=== PATIENT | male | born 1930 | race Caucasian/White ===

== ENCOUNTER 2016-05-06 05:30 | Inpatient (IN) | payer MEDICARE, OTHER ==
[~2016-05-06] VITALS: Ht 167.6 cm; Wt 75.1 kg
[2016-05-06 05:37] VITALS: BP 120/72; PULSE 70; RESP 15; O2SAT 97
[2016-05-06 05:50] LABS: BASOPHILS % (AUTO) 0.8 % (0-3); EOSINOPHILS % (AUTO) 4.3 % (0-5); MONOCYTES % (AUTO) 10.4 % (4-12); Mean Corpuscular Hemoglobin 29.4 pg (27.0-35.0); Mean Corpuscular Volume 84.6 fL (81-100); NEUTROPHILS % (AUTO) 55.6 % (40-74); Platelet Count 227 bil/L (150-400)
--- NOTE | 2016-05-06 06:01 | ED.REPORT ---
HPI-Syncope Date of Service May 06, 2016 ED Provider: Alireza Geller DO An 85 year old male on Coumadin with a history of dementia, chronic low back pain, chronic diarrhea, pacemaker, GA, and triple bypass is brought to the ED due to a fall. Per pt's , the pt woke her at 04:20 claiming that he had a stroke. The pt does not remember this. The pt's reports that he was able to speak and move all extremities, and she did not notice any symptoms of a stroke. He then asked to use the restroom. The pt's was sitting directly outside of the restroom a moment later when she saw him fall to the left against a nearby wall. His "eyes were rolled back" and he was unresponsive for approximately two minutes. This was accompanied by diaphoresis and nausea, though he did not experience vomiting, worsening cough, hematochezia, or incontinence. After he became responsive again, he was unable to sit up. The pt denies pain before the fall, pain in the ED, or focal weakness, stating instead that he fell because he was "just out of it." When the pt's blood pressure was taken following this episode it was 160, which is higher than his baseline of 110. Per pt's his legs have been getting progressively weaker over the last year, but this has dramatically worsened in the last two weeks. Though he is normally able to walk, his has been pushing him around in a walker. He has also been sleeping an abnormal amount in recent weeks. They moved from their home to an Assisted Living facility one month ago, after which he became extremely depressed. He was seen by his PCP last week, who did not find anything concerning. Nursing Notes Stated Complaint: SYNCOPE Chief Complaint: General Complaint Nursing Notes Reviewed: Yes Allergies: Coded Allergies: Penicillins (Verified Allergy, Severe, 02/09/09) Uncoded Allergies: Penicillin (Allergy, Severe, 10/16/03) sesame seeds (Allergy, Severe, Anaphylaxis, 10/16/03) Scheduled Aspirin (Aspirin) 81 Mg Tablet 81 MG PO DAILY Carvedilol (Carvedilol) 12.5 Mg Tablet 12.5 MG PO BID Cholecalciferol (Vitamin D3) (Vitamin D) 5,000 Unit Capsule 5,000 UNIT PO WEEKLY Donepezil (Donepezil) 10 Mg Tablet 10 MG PO HS Donepezil (Donepezil) 23 Mg Tablet 23 MG PO HS Lisinopril (Lisinopril) 20 Mg Tablet 20 MG PO DAILY Mirtazapine (Mirtazapine) 7.5 Mg Tablet 7.5 MG PO HS Simvastatin (Simvastatin) 20 Mg Tablet 20 MG PO HS Spironolactone (Spironolactone) 25 Mg Tablet 12.5 MG PO BID Warfarin Sodium (Warfarin Sodium) 5 Mg Tablet 5 MG PO DAILY Scheduled PRN Warfarin Sodium (Warfarin Sodium) 2.5 Mg Tablet 2.5 MG PO DIRECTED PRN PRN For Tachycardia General Time Seen by Provider: 06:00 Chief Complaint Other (Syncopal episode) Hx Obtained From: Patient, Spouse, EMS Arrived By: Ambulance Onset Occurred: 31 - 45 minutes ago Symptom Duration: 1 - 15 minutes Recent Healthcare: No recent hospitalization, Recent doctor visit Similar Sx Previous: No Past Medical History Past Medical History GA chronic low back pain chronic diarrhea dementia Past Surgical History 1994 CABG triple bypass pacemaker Smoking History Unknown if Ever Smoker Social History Other Social History: Good social support, , Lives in [facility] Ambulatory Status Cane Review of Systems Constitutional: Denies: Fever Respiratory: Denies: Non-productive cough, Shortness of breath Cardiovascular: Denies: Chest pain GI: Reports: Diarrhea, Nausea, Denies: Abdominal pain, Hematochezia, Vomiting Musculoskeletal: Denies: Back pain Skin: Reports Diaphoresis, Denies Rash Neurologic: Reports: Syncope, Denies: Weakness Complete sys rev & neg: except as marked. Physical Exam Physical Exam Notes: NIH score: 0 Initial Vital Signs Vital Signs (First) Date Time Temp Pulse Resp B/P Pulse Ox O2 Delivery O2 Flow Rate FiO2 05/06/16 05:37 34.6 70 15 120/72 97 Room Air Initial VS: Reviewed General/Constitutional: Awake, Alert Respiratory / Chest: Atraumatic, Breath sounds NL, Breath sounds = bilat, No respiratory distress pacemaker left upper chest Cardiovascular: Heart rate NL (paced), Regular rhythm, Heart sounds NL Lower Extremity / Pelvis / MS: Atraumatic, Full range of motion Neurologic: Oriented X3, Speech NL, No motor deficits, No sensory deficits, CN II - XII intact Head / Eyes: Atraumatic, Normocephalic, PERRL, EOMI ENT: Airway patent Mouth: Positive: Mucous membranes dry skin abrasion on top of left ear Neck: Atraumatic, Supple, Full range of motion Abdomen: Atraumatic, Soft, Non-tender Back: Atraumatic, Full range of motion C-spine, T-spine, and L-spine normal Skin: Color NL, No rash, Warm, Dry Psychiatric: Affect NL, Mood NL Upper Extremity / MS: Atraumatic, Full range of motion Interpretation & Diagnostics Lab Results Interpretation Result Diagram: 05/06/16 0532 05/06/16 0532 Test 05/06/16 05:32 White Blood Count 9.5th/mm3 (3.8-10.1) Red Blood Count 4.93mil/mm3 (4.40-5.80) Hemoglobin 14.5g/dL (13.8-17.2) Hematocrit 41.7% (41.0-50.0) Mean Corpuscular Volume 84.6fL (81-100) Mean Corpuscular Hemoglobin 29.4pg (27.0-35.0) Mean Corpuscular Hemoglobin Concent 34.8% (32.0-37.0) Red Cell Distribution Width 14.3% (12.3-15.4) Platelet Count 227bil/L (150-400) Neutrophils (%) (Auto) 55.6% (40-74) Lymphocytes (%) (Auto) 28.7% (14-46) Monocytes (%) (Auto) 10.4% (4-12) Eosinophils (%) (Auto) 4.3% (0-5) Basophils (%) (Auto) 0.8% (0-3) Hold Purple Top Tube Received (Received) Prothrombin Time 31.2sec (8.1-12.5) Prothromb Time International Ratio 2.85ratio Hold Blue Top Tube Received (Received) Sodium Level 132mEq/L (134-144) Potassium Level 5.6mEq/L (3.5-5.2) Chloride Level 103mEq/L (97-108) Carbon Dioxide Level 16mmol/L (18-29) Blood Urea Nitrogen 57mg/dL (8-27) Creatinine 1.33mg/dL (0.76-1.27) Estimat Glomerular Filtration Rate 54mL/min (>59) Glucose Level 129mg/dL (60-99) Calcium Level 9.1mg/dL (8.5-10.1) Total Bilirubin 0.3mg/dL (0.0-1.2) Aspartate Amino Transf (AST/SGOT) 30U/L (0-50) Alanine Aminotransferase (ALT/SGPT) 35U/L (0-44) Alkaline Phosphatase 58U/L (25-160) Total Protein 7.6g/dL (6.4-8.4) Albumin 4.1g/dL (3.4-5.0) Hold Red Top Tube Received (Received) Hold [place] Top Tube Received (Received) ECG Interpretation ECG Interpretation: ventricular-paced rhythm with a rate of 70 Time: 05:37 Interpreted by: ED physician X-Ray Chest Interpretation Chest Xray Interpretation: pacemaker no acute findings Interpretation / Wet Read by: Wet read ED physician CT Head Interpretation Diffuse atrophy and suggestion if subtle periventricular white matter disease (Leukoaraiosis) without CT evidence of acute intracranial pathology at this time. Interpretation / Wet Read by: Interpret - Radiologist Re-Eval/Medical Decision Med Decision/Clinical Course Patient presents with a syncopal episode, auditory dilation endorses moderate to severe dehydration with low bicarbonate, elevated potassium, and prerenal azotemia. Head CT and chest x-ray are unremarkable urine is not infected, pacemaker interrogation unremarkable, EKG reveals 100% paced rhythm. No identifiable signs or symptoms of stroke. Patient will be admitted and hydrated. Source of Hx: Old records Re-Evaluation/Progress #1: Time of Eval: 06:38 Patient Status: Condition improved Re-Evaluation/Progress Note: Pt rechecked, who is resting comfortably. Pt and his family are informed of lab results, diagnosis, and the plan for admission. The pt understands and agrees with the plan. All questions were addressed at this time. Re-Evaluation/Progress #2: Time of Eval: 08:05 Patient Status: Condition improved Re-Evaluation/Progress Note: Pt rechecked, who is resting and accompanied by family. Radiology results, code status, and plan for admission are further discussed. Consultation #1: Call Returned at: 06:00 Sales Representative Adding Machines: Agrees with eval Note: Consulted with [email or web address] sales representative regarding pt's case. Per dairy supplies sales representative, pt has 100% paced rhythm with no obvious cause for syncope. Consultation #2: Referral / Consult Name: Brittany Tate DO Consulted With: Hospitalist Call Returned at: 07:49 Sales Representative Adding Machines: Agrees with eval, Agrees with plan, Accepts admit Note: Spoke with Dr. Tate, hospitalist, regarding pt's case. Dr. Tate agrees with the evaluation and agrees to admit the pt. Counseled Regarding: Diagnosis, Lab results, Need for admission Discharge & Departure Impression: Primary Impression: Syncope Syncope type: unspecified Qualified Code: R55 - Syncope and collapse Additional Impressions: Dehydration Hyperkalemia Disposition: ADMITTED TO HOSPITAL Discharge Condition All VS Reviewed: Yes Condition: Stable Referrals: Emanuel Fregoso DO (PCP) Yunior Attestation Portions of this note were transcribed by Wilberto Gross I, Dr. Geller personally performed the history, physical exam and medical decision-making; I reviewed and confirmed the accuracy of the information in the transcribed note. Signed by: Yunior Jose, 05/06/16 and 08:02. copies to: Emanuel Fregoso Timothy S DO May 06, 2016 06:01 WILBERTO GROSS May 06, 2016 06:47
[2016-05-06 06:04] LABS: INR 2.85 ratio
[2016-05-06] MEDS ORDERED: 0.9% Sodium Chloride 500 ML IV ONE (06:35)
[2016-05-06 07:36] VITALS: BP 109/65; PULSE 71; RESP 16; O2SAT 97
[2016-05-06] MEDS ORDERED: Ondansetron 2 mg/mL 2 mL Inj IVPUSH PRN (08:00)
[2016-05-06] MEDS ORDERED: Alum-Mag Hydrox-Simeth 30 mL Suspension PO PRN (08:00)
[2016-05-06] MEDS ORDERED: Polyethylene Glycol (PEG) 17 Gm Powder PO PRN (08:00)
[2016-05-06] MEDS ORDERED: Calcium GLUCOnate 10% (Gm) 1 Gm/10 mL Inj IVPUSH ONE (08:10)
[2016-05-06] MEDS ORDERED: 0.9% Sodium Chloride 1,000 ML IV SCH ×2 (08:10→19:50)
[2016-05-06] MEDS ORDERED: CARV12.52 PO (08:15)
[2016-05-06] MEDS ORDERED: SIMV20TA4 PO (08:15)
[2016-05-06] MEDS ORDERED: DONE10TA42 PO (08:15)
[2016-05-06] MEDS ORDERED: LISI-567 PO (08:15)
[2016-05-06] MEDS ORDERED: CHOL500051 PO (08:15)
[2016-05-06] MEDS ORDERED: ASPI-973 PO (08:15)
[2016-05-06] MEDS ORDERED: DONE23TA7 PO (08:15)
[2016-05-06] MEDS ORDERED: SPIR25TA3 PO (08:15)
[2016-05-06] MEDS ORDERED: WARF5TAB7 PO (08:15)
[2016-05-06] MEDS ORDERED: WARF2.5T82 PO (08:15)
[2016-05-06] MEDS ORDERED: MIRT7.5T8 PO (08:15)
[2016-05-06 08:49] LABS: APPEARANCE,URINE CLEAR (CLEAR,HAZY); COLOR,URINE YELLOW (YELLOW); OCCULT BLOOD,URINE NEGATIVE (NEGATIVE); PH,URINE 5.5 (5.0-8.0); UROBILINOGEN,URINE NORMAL (NORMAL)
[2016-05-06 09:59] VITALS: BP 122/74; PULSE 70; RESP 20; O2SAT 96
--- NOTE | 2016-05-06 11:52 | DRSVH ---
PROCEDURE: X-RAY CHEST ONE VIEW, PORTABLE ([id number]) INDICATIONS: weakness TECHNIQUE: One view of the chest was acquired. COMPARISON: None. FINDINGS: Surgical changes and devices: Pacemaker and sternal wires are present. Lungs and pleura: No pleural effusions or pneumothorax. Lungs are clear. Mediastinum: Mediastinal contours appear normal. Heart size is normal. Bones and chest wall: No suspicious bony lesions. Overlying soft tissues appear unremarkable. IMPRESSION: No acute pulmonary process. Dictated by: Farnaz Sheridan M.D. on 05/06/2016 at 8:52 Approved by: Farnaz Sheridan M.D. on 05/06/2016 at 8:52
--- NOTE | 2016-05-06 12:08 | DRSVH ---
PROCEDURE: CT BRAIN WITHOUT CONTRAST ([id number]) INDICATIONS: syncope, on coumadin TECHNIQUE: Noncontrast 4.5 mm thick angled axial sections acquired from the foramen magnum to the vertex, with c oronal reformats. COMPARISON: None. FINDINGS: Image quality: Excellent. CSF spaces: Basal cisterns are patent. No extra-axial fluid collections. The ventricles are symmet kaylyn in size and shape. Brain: No intracranial bleeds or masses. There is cerebral volume loss for age, with resultant vent ricular and sulcal prominence. There are periventricular and deep white matter chronic small vessel ischemic changes. There is intracranial internal carotid artery atherosclerosis. Skull and face: Calvarium and visualized facial bones appear intact, without suspicious lesions. Sinuses: Visualized sinuses demonstrate mild ethmoid mucosal thickening. IMPRESSION: 1. No acute intracranial process. 2. Moderate atrophy and chronic microvascular ischemic changes. Dictated by: Farnaz Sheridan M.D. on 05/06/2016 at 8:32 Approved by: Farnaz Sheridan M.D. on 05/06/2016 at 8:32
[2016-05-06] MEDS ORDERED: Calcium GLUCO 10% (Gm) 1 Gm/10 mL 50 mL Inj IV ONE (12:40)
[2016-05-06] MEDS ORDERED: Insulin Human REGular-Omnicell 100 Unit/mL IV ONE (13:35)
[2016-05-06 13:46] VITALS: BP 133/77; PULSE 74; RESP 18; O2SAT 97
--- NOTE | 2016-05-06 15:48 | NUR ---
Admit Pt admitted from ED at 0910 after fall at home this AM. Pt states he is dizzy and uses cane at home and per "wall walks". Pt transferred to bed with Jay Em alarm in place. IV s/l on left AC. No c/o pain, DEAN. Alert to self only with baseline dementia. Forgetful and needs frequent reorienting to call light and not to get OOB. Addendum: 05/06/16 at 1825 by JOSE A GUERRA RN Pt had multiple episodes of loose bowels. MD aware and per has history of IBS. Pt lives in assisted living, so going to r/o norovirus. Pt placed on enteric precautions.
--- NOTE | 2016-05-06 17:49 | PCM.HPMED ---
Subjective Date of Service May 06, 2016 Primary Provider: Admitting Physician: Brittany Tate DO Primary Care Physician: Emanuel Fregoso DO Attending Physician: Brittany Tate DO Chief Complaint: Syncope Allergies Coded Allergies: Penicillins (Verified Allergy, Severe, 02/09/09) Uncoded Allergies: Penicillin (Allergy, Severe, 10/16/03) sesame seeds (Allergy, Severe, Anaphylaxis, 10/16/03) PMH Social History Hx Alcohol Use: No Hx Substance Use: No Smoking Status: Unknown if Ever Smoker Exam Vital Signs Vital Sign - Last Date Time Temp Pulse Resp B/P Pulse Ox O2 Delivery O2 Flow Rate FiO2 05/06/16 13:46 36.4 74 18 133/77 97 Room Air Intake and Output 05/05/16 05/05/16 05/06/16 Cumulative From/Thru 15:00 23:00 07:00 05/06/16 05:37 - 05/06/16 06:39 Intake Total 500 ml 500 ml Balance 500 ml 500 ml Intake IV Total 500 ml 500 ml Lab and Diagnostics Result Diagram: 05/06/16 0532 05/06/16 0532 Assessment & Plan HPI: Patient is an 85-year-old male who presented to the emergency room status post fall secondary to a syncopal episode. The patient presented with his who stated that the patient woke up this morning complaining of "I am having a stroke". The examined the patient and saw no signs of facial drooping noted the patient have any slurring of speech. At that time the patient decided to go to the bathroom and while on the toilet the heard the patient fall and hit his head on the bathroom wall. The stated that the patient lost consciousness for about 2 minutes and then had a postictal period of confusion shortly after regaining consciousness. The then decided the patient needed to come in for examination. The states that the patient has not been complaining of chest pain, shortness of breath, fever, chills, nausea or vomiting. Patient does have chronic loose stools most likely secondary to IBS. The states that she feels the patient has been complaining of increased weakness progressing for the last 1-2 months. The patient generally gets pushed around by his on her roller aid and needs significant assistance with daily activities. The patient is being admitted for syncopal episode and increasing weakness status post fall. The patient does have a pacemaker and while in the ED they were able to capture at the pacemaker and it was interrogated by [email or web address] who stated that there was no signs of any dysfunction of the pacemaker. PCP: Marylou Daniel Hoop Maker: Dr. Knight Allergies: Drug: Penicillin Food: Sesame seed PMHx: Dementia DE IBS GERD BPH SHx: Appendectomy in the Cardiac stent in 1993 Three-way bypass and 1994 Pacemaker FHx: Mother at age 83 and history of breast cancer Father at age 56 secondary to lung disease Family history of premature ischemic heart disease SocHx: Occupation: Tobacco history: Patient denies Alcohol use: Patient denies Drug use: Patient denies ROS: A 12point revew of systems was performed or attempted to be performed. Please see HPI for perninent positives. Physical Exam: GEN: Patient was awake, alert, responding appropriately to questions HEENT: PERRLA, EOMI, Neck soft supple, trachea midline, nomocephalic/atraumatic CV: +S1/S2, RRR, pacemaker noted and palpated Respiratory: CTAB, no wheezes, rales, rhonchi GI: +bowel sounds x4, soft, compressible, non TTP EXT: no c/c/e Neuro: CN II-XII grossly intact Psych: mood and affect were appropriate Assessment and Plan 85-year-old male presents with complaint of syncopal episode Syncopal episode with a fall may be likely due to dehydration -- Hyponatremia Sodium 132 -- Continue IV fluids gentle hydration -- Rule out infectious etiology -- Patient was hypotensive on admission with a blood pressure of 109/65 -- Urine culture -- We will continue to monitor -- CT negative for intracranial bleeding Weakness -- PT consulted -- May be secondary to dehydration we will rehydrate patient Chronic diarrhea most likely secondary to IBS -- Stool cultures to rule out infectious etiology for possible increased diarrhea Acute kidney injury possibly secondary to dehydration -- Creatinine 1.33 -- Continue IV fluids -- We will continue to monitor Hyperkalemia -- Potassium level 5.6 -- Continue IV fluids -- We will continue to monitor Hypertension -- Currently stable -- Continue home medications DVT prophylaxis: Patient currently on warfarin pharmacy to manage INR therapeutic Code Status: DO NOT INTUBATE as per the , the patient would still want CPR and other resuscitative measures to be taken. VTE Prophylaxis: Theraputic Anticoag with Warfarin VTE Mechanical Devices: Intermittant Pneumatic CD Resuscitation Status: Limited Interventions (DO NOT INTUBATE) Limited Interventions: Compressions, Cardioversion/Defibrillation, BiPAP, Medications and IV Fluid Time spent Greater than 35 minutes Brittany Tate DO May 06, 2016 17:49
--- NOTE | 2016-05-06 19:35 | NUR ---
Calcium Gluconate Medication ordered this AM by ER prior to admission, but per LINE INSTALLER REPAIRER (Nikole Paredes) medication not given. Discussed with MD here and new orders put in for calcium gluconate, but then MD canceled. ER medication order still in [facility], but medication not given.
[2016-05-06 20:55] VITALS: BP 145/83; PULSE 70; RESP 20; O2SAT 97
--- NOTE | 2016-05-06 23:33 | PCM.CONPHA ---
Subjective Syncope Objective Vital Signs Date Time Temp Pulse Resp B/P Pulse Ox O2 Delivery O2 Flow Rate FiO2 05/06/16 20:55 36.7 70 20 145/83 97 Room Air 05/06/16 13:46 36.4 74 18 133/77 97 Room Air 05/06/16 09:59 36.8 70 20 122/74 96 Room Air 05/06/16 08:34 34.6 71 16 109/65 97 Room Air 05/06/16 07:36 71 16 109/65 97 Room Air 05/06/16 05:37 34.6 70 15 120/72 97 Room Air Weight (Kilograms): 75.100 Height (Feet): 5 Height (Inches): 6.00 Test 05/06/16 05:32 05/06/16 08:29 White Blood Count 9.5th/mm3 (3.8-10.1) Red Blood Count 4.93mil/mm3 (4.40-5.80) Hemoglobin 14.5g/dL (13.8-17.2) Hematocrit 41.7% (41.0-50.0) Mean Corpuscular Volume 84.6fL (81-100) Mean Corpuscular Hemoglobin 29.4pg (27.0-35.0) Mean Corpuscular Hemoglobin Concent 34.8% (32.0-37.0) Red Cell Distribution Width 14.3% (12.3-15.4) Platelet Count 227bil/L (150-400) Neutrophils (%) (Auto) 55.6% (40-74) Lymphocytes (%) (Auto) 28.7% (14-46) Monocytes (%) (Auto) 10.4% (4-12) Eosinophils (%) (Auto) 4.3% (0-5) Basophils (%) (Auto) 0.8% (0-3) Hold Purple Top Tube Received (Received) Prothrombin Time 31.2sec (8.1-12.5) Prothromb Time International Ratio 2.85ratio Hold Blue Top Tube Received (Received) Sodium Level 132mEq/L (134-144) Potassium Level 5.6mEq/L (3.5-5.2) Chloride Level 103mEq/L (97-108) Carbon Dioxide Level 16mmol/L (18-29) Blood Urea Nitrogen 57mg/dL (8-27) Creatinine 1.33mg/dL (0.76-1.27) Estimat Glomerular Filtration Rate 54mL/min (>59) Glucose Level 129mg/dL (60-99) Calcium Level 9.1mg/dL (8.5-10.1) Total Bilirubin 0.3mg/dL (0.0-1.2) Aspartate Amino Transf (AST/SGOT) 30U/L (0-50) Alanine Aminotransferase (ALT/SGPT) 35U/L (0-44) Alkaline Phosphatase 58U/L (25-160) Total Protein 7.6g/dL (6.4-8.4) Albumin 4.1g/dL (3.4-5.0) Hold Red Top Tube Received (Received) Hold [place] Top Tube Received (Received) Urine Color Yellow (YELLOW) Urine Appearance Clear (CLEAR,HAZY) Urine pH 5.5 (5.0-8.0) Urine Specific [place] 1.021 (1.003-1.035) Urine Protein Negativemg/dL (NEG,TRACE) Urine Glucose (UA) Negativemg/dL (NEGATIVE) Urine Ketones Negativemg/dL (NEGATIVE) Urine Occult Blood Negative (NEGATIVE) Urine Nitrite Negative (NEGATIVE) Urine Bilirubin Negative (NEGATIVE) Urine Urobilinogen Normalmg/dL (NORMAL) Urine Leukocyte Esterase Negative (NEGATIVE) Urine RBC 0-2/hpf (0-2) Urine WBC 0-5/hpf (0-5) Urine Epithelial Cells Few/hpf (NONE-MOD) Urine Crystals None seen (NONE SEEN) Urine Bacteria None/hpf (NONE-FEW) Urine Hyaline Casts Occasional/lpf (NONE) Urine Granular Casts None seen (NONE SEEN) Urine Waxy Casts None seen (NONE SEEN) Urine Red Blood Cell Casts None seen (NONE SEEN) Urine White Blood Cell Casts None seen (NONE SEEN) Urine Mucus None seen (None Seen) Urine Trichomonas None seen (NONE SEEN) Urine Yeast None (NONE SEEN) Urinalysis Comment None Urine Culture Reflexed Not indicated Assessment/Plan Assessment/Plan PATIENT IS AN 85 YEAR OLD MALE ON WARFARIN FOR DVT PROPHYLAXIS HIS HOME DOSE IS 2.5 MG AND 5 MG DAILY "PRN" FOR INR HIS INR 05/06 WAS 2.85; INR ORDERED FOR 05/07 AND WARFARIN WILL BE DOSED ( OR HELD ) ACCORDINGLY. HE IS WITHIN HIS GOAL RANGE OF 2-3 INR PHARMACY WILL CONTINUE TO FOLLOW DAILY. THANK YOU FOR CONSULTING PHARMACY IN THE CARE OF THIS PATIENT. Jacque Marin RPH May 06, 2016 23:33
[2016-05-07 01:10] VITALS: BP 132/72; PULSE 72; RESP 20; O2SAT 97
[2016-05-07 05:55] VITALS: BP 123/73; PULSE 70; RESP 20; O2SAT 96
[2016-05-07 06:48] LABS: BASOPHILS % (AUTO) 0.5 % (0-3); EOSINOPHILS % (AUTO) 3.6 % (0-5); Mean Corpuscular Hemoglobin 29.1 pg (27.0-35.0); Mean Corpuscular Volume 83.5 fL (81-100); NEUTROPHILS % (AUTO) 57.7 % (40-74); Platelet Count 218 bil/L (150-400)
[2016-05-07 07:09] LABS: INR 2.99 ratio
--- NOTE | 2016-05-07 07:39 | NUR ---
Generalized weakness Also impulsive, bed alarm on. Oriented to self and place only. Denies pain.
--- NOTE | 2016-05-07 09:59 | NUR ---
Evaluation completed. Please go to "Notes" then click on "Assessments and Notes" (bottom left corner of screen). Then select appropriate discipline tab on top of screen.
--- NOTE | 2016-05-07 10:34 | NUR ---
Hyperkalemia P: K+ elevated at admission. Improved but still high today at 5.0. I: Spironolactone withheld this morning per discussion with Dr. Tate. E: Will reevaluate Potassium levels in the morning and monitor for signs of worsening hyperkalemia.
[2016-05-07 10:46] VITALS: BP 129/76; PULSE 70; RESP 18; O2SAT 97
--- NOTE | 2016-05-07 13:38 | PCM.PNMED ---
Subjective Date of Service May 07, 2016 Subjective Patient was examined at bedside today. Patient denies any chest pain, shortness of breath, nausea, vomiting. Patient states that he is doing well and has no complaints. Exam Vital Signs Vital Sign - Last Date Time Temp Pulse Resp B/P Pulse Ox O2 Delivery O2 Flow Rate FiO2 05/07/16 10:46 36.3 70 18 129/76 97 Room Air Intake and Output 05/06/16 05/06/16 05/07/16 Cumulative From/Thru 15:00 23:00 07:00 05/06/16 05:37 - 05/07/16 01:00 Intake Total 707 ml 1207 ml Output Total 5 ml 5 ml Balance 702 ml 1202 ml Intake Oral 440 ml 440 ml IV Total 267 ml 767 ml Urine/Stool Mix 5 ml 5 ml Bladder Scan Volume Amount 86mL Exam Physical Exam: GEN: Patient was awake, alert, responding appropriately to questions HEENT: PERRLA, EOMI, Neck soft supple, trachea midline, nomocephalic/atraumatic CV: +S1/S2, RRR, no murmurs auscultated Respiratory: CTAB, no wheezes, rales, rhonchi GI: +bowel sounds x4, soft, compressible, non TTP EXT: no c/c/e Neuro: CN II-XII grossly intact Psych: mood and affect were appropriate IVs and Medications Medications Reviewed: Medications were reviewed in detail Medications Current Medications Al Hydrox/Mg Hydrox/Simethicone 30 ml Q6H PRN PO; Start 05/06/16 at 08:00 Ondansetron HCl 4 to 8 mg Q4H PRN IVPUSH; Start 05/06/16 at 08:00 Senna 17.2 mg BID PRN PO; Start 05/06/16 at 08:00 Polyethylene Glycol 17 gm 17 gm DAILY PRN PO; Start 05/06/16 at 08:00 Sodium Chloride 1,000 ml @ 100 mls/hr Q10H IV Last administered on 05/06/16 12 :18; Admin Dose 100 MLS/HR; Start 05/06/16 at 08:10; Stop 05/06/16 at 19:47; Status DC Aspirin 81 mg DAILY PO Last administered on 05/07/16 10:06; Admin Dose 81 MG; Start 05/07/16 at 08:30 Carvedilol 12.5 mg BID PO Last administered on 05/07/16 10:07; Admin Dose 12.5 MG; Start 05/06/16 at 20:30 Lisinopril 20 mg DAILY PO Last administered on 05/07/16 10:06; Admin Dose 20 MG ; Start 05/07/16 at 08:30 Spironolactone 12.5 mg BID PO Last administered on 05/06/16 20:12; Admin Dose 12.5 MG; Start 05/06/16 at 20:30 Donepezil HCl 10 mg HS PO; Start 05/06/16 at 21:51; Stop 05/06/16 at 23:22; Status DC Patient Own Medication 1 ea HS PO; Start 05/07/16 at 21:00 Mirtazapine 7.5 mg HS PO Last administered on 05/06/16 23:17; Admin Dose 7.5 MG ; Start 05/06/16 at 21:52 Atorvastatin Calcium 10 mg HS PO Last administered on 05/06/16 23:17; Admin Dose 10 MG; Start 05/06/16 at 21:52 Pharmacy Consult 1 ea 1 ea DAILY@17 XX; Start 05/07/16 at 17:00 Sodium Chloride 1,000 ml @ 50 mls/hr Q20H IV; Start 05/06/16 at 19:50; Stop at 07:28; Status DC Lab and Diagnostics Result Diagram: 05/07/16 0630 05/07/16 0630 Assessment & Plan 85-year-old male admitted status post fall from syncopal episode. Syncopal episode with a fall may be likely due to dehydration -- Hyponatremia Sodium 132 (resolved sodium 139) -- Discontinue Continue IV fluids -- Rule out infectious etiology white blood cell count within normal limits currently no other signs of bacterial or viral infection -- Urine culture -- CT negative for intracranial bleeding -- We will continue to monitor Hypotension (resolved) --Admission with a blood pressure of 109/65 currently blood pressure is 129/76. -- We will continue to monitor Weakness -- PT consulted and stated that the patient does have an unbalanced gait secondary to his dementia however he is ambulating adequately. Patient's weakness may have been secondary to dehydration. Chronic diarrhea most likely secondary to IBS -- Stool cultures negative diarrhea is secondary to IBS Acute kidney injury possibly secondary to dehydration (resolved) -- Creatinine 1.33 yesterday and today creatinine is 1.04 -- Discontinue Continue IV fluids -- We will continue to monitor Hyperkalemia (resolved) -- Potassium level 5.6 yesterday, today 5.0 -- Discontinue Continue IV fluids -- Continue to hold spironolactone -- We will continue to monitor DVT prophylaxis: Patient currently on warfarin pharmacy to manage INR therapeutic Code Status: DO NOT INTUBATE as per the , the patient would still want CPR and other resuscitative measures to be taken. VTE Prophylaxis: Theraputic Anticoag with Warfarin VTE Mechanical Devices: Intermittant Pneumatic CD Resuscitation Status: Limited Interventions (DO NOT INTUBATE) Limited Interventions: Compressions, Cardioversion/Defibrillation, BiPAP, Medications and IV Fluid Brittany Tate DO May 07, 2016 13:38
[2016-05-07 15:37] VITALS: BP 106/65; PULSE 70; RESP 16; O2SAT 94
--- NOTE | 2016-05-07 15:43 | NUR ---
Social Work: Initial Evaluation Data & Assessment: EMR reviewed. See Initial Assessment. rigging up worker met with patient and patient's family at bedside to complete initial assessment, discuss discharge plan, and SW role explained. Patient is a 85 y/o male that admitted due to syncope, dehydration, and hyperkalemia. Patient's NOK is his Sarah Beaulieu- [phone]. Patient's daughter Pamella [phone] can also be contacted. Patient does not have a DPOA, but SW provided patient with the information. Patient's PCP is Dr. Emanuel Fregoso. Patient insurance is Medicare and Secondary is [employer]. Patient has VA benefits and no LTC insurance. Patient's re-admit score is high at 4. Prior to admissions patient lived at [facility] with his . . Patient has a walker. Patient has no SNF history, but he has had HH with [facility]. Patient was evaluated by PT and they are recommending HH. Patient's wants [facility] because he has had them in the past. Patient is likely to discharge back to [facility] with [facility]. SW will continue to follow. Plan: Patient is likely to discharge back to [facility] with [facility] when medically stable. SW will continue to follow. Santos Rodriguez LMSW, VANESA Addendum: 05/07/16 at 1552 by SANTOS RODRIGUEZ SS Amended: Links added.
--- NOTE | 2016-05-07 16:02 | NUR ---
Social Work: IFEANYI IFEANYI Signed
--- NOTE | 2016-05-07 16:41 | PCM.PHAPRO ---
Progress Date of Service: May 07, 2016 Warfarin Dosing Indication: Dvt px Home Dose: 7.5mg M,W,F 5mg AOD Anticoagulation Trends: Date May 07-Apr INR 2.85 2.99 Warf Dose 5MG (before arriving) 2.5MG GOAL INR: 2-3 Summary: Patient's INR is on the high end and trending up, will give 50% of what the home dose would be today. Pharmacy will continue to follow daily. Thank you for consulting pharmacy in the care of this patient. Twin Ochoa May 07, 2016 16:41
[2016-05-07 19:57] VITALS: BP 111/70; PULSE 72; RESP 18; O2SAT 96
[2016-05-07] MEDS ORDERED: DONEPEZIL 23 MG PO SCH (21:00)
[2016-05-08 04:34] VITALS: BP 120/72; PULSE 74; RESP 16; O2SAT 96
[2016-05-08 06:19] LABS: Mean Corpuscular Hemoglobin 28.7 pg (27.0-35.0); Mean Corpuscular Volume 83.9 fL (81-100)
[2016-05-08 06:59] LABS: INR 2.17 ratio
--- NOTE | 2016-05-08 07:15 | NUR ---
patients called last evening. she would like to be notified of husbands pending discharge so she can arrange a ride for him. She lives at [facility] and doesn't drive. Patient stable overnight with no acute changes.
[2016-05-08 10:27] VITALS: BP 146/82; PULSE 71; RESP 18; O2SAT 97
--- NOTE | 2016-05-08 11:32 | PCM.DIMED ---
Discharge Instructions Date of Service May 08, 2016 Dates of Hospitalization May 06, 2016 at 08:15 Discharge Diagnosis Discharge Diagnosis Syncopal episode with a fall may be likely due to dehydration Hypotension (resolved) Chronic diarrhea most likely secondary to IBS Acute kidney injury possibly secondary to dehydration (resolved) Hyperkalemia (resolved) Weakness Medication Instructions Please follow up with her Coumadin clinic or her primary care physician if they manage her Coumadin for close monitoring. Please do not take the spironolactone as this may have been the cause of her high potassium levels. Please discuss further usage of this medication with her primary care physician. Diet Other (patient has no restrictions on his diet as long as he is using enters. Patient does not have his dentures and the patient use a soft mechanical diet) Activity Other (activity as tolerated. Patient should continue to use a walker as the patient does have an unsteady gait) Call your provider Fever or Chills, Shortness of breath, Bleeding, Chest pain Patient Instructions Follow-up Provider: Emanuel Fregoso DO Follow-up with PCP in: 1 week Brittany Tate DO May 08, 2016 11:32
--- NOTE | 2016-05-08 13:59 | PCM.DC.MED ---
Discharge Summary Date of Service May 08, 2016 Dates of Hospitalization Date of Hospital Admission May 06, 2016 at 08:15 Date of Discharge: May 08, 2016 Providers: Admitting Physician: Brittany Tate DO Primary Care Physician: Emanuel Fregoso DO Attending Physician: Birttany Tate DO Diagnosis at Time of Discharge Diagnosis at Time of Discharge Syncopal episode with a fall may be likely due to dehydration Hypotension (resolved) Chronic diarrhea most likely secondary to IBS Acute kidney injury possibly secondary to dehydration (resolved) Hyperkalemia (resolved) Weakness Brief History 85-year-old male admitted status post fall from syncopal episode. Hospital Course Patient is an 85-year-old gentleman who fell status post syncopal episode while on the toilet. The patient fell and hit his head and lost consciousness for about 2 minutes. The patient's had the patient brought to the emergency room. The patient did have a head CT scan which was negative for any intracranial processes. However upon admission the patient was found to be dehydrated and was hypotensive and had hyponatremia, hyperkalemia, and weakness. The patient was resuscitated with IV fluids and his spironolactone was held. The patient was most likely dehydrated and also suffered from hyperkalemia secondary to spironolactone use. The patient responded quickly and his labs have resolved. The patient also suffers from chronic intermittent diarrhea most likely secondary to IBS. Patient's stool cultures came back negative for any infectious processes. Physical therapy examined the patient and noted that he does have some shuffling gait instability secondary to his dementia. However the patient has been physically cleared to return to his assisted living facility with no further recommendations for home PT. The patient is currently doing well she has been walking on his own with the assistance of a walker, has been able to feed himself and is communicating appropriately. Patient is being discharged back to his assisted living facility in stable condition. Exam Vital Signs (Last) Date Time Temp Pulse Resp B/P Pulse Ox O2 Delivery O2 Flow Rate FiO2 05/08/16 10:27 36.4 71 18 146/82 97 Room Air Exam Physical Exam: GEN: Patient was awake, alert, responding appropriately to questions HEENT: PERRLA, EOMI, Neck soft supple, trachea midline, nomocephalic/atraumatic CV: +S1/S2, RRR, no murmurs auscultated, pacemaker noted on exam. Respiratory: CTAB, no wheezes, rales, rhonchi GI: +bowel sounds x4, soft, compressible, non TTP EXT: no c/c/e Neuro: CN II-XII grossly intact Psych: mood and affect were appropriate Test 05/06/16 05:32 05/06/16 08:29 05/07/16 06:30 05/08/16 05:40 Hold Purple Top Tube Received (Received) Hold Blue Top Tube Received (Received) Hold Red Top Tube Received (Received) Hold [place] Top Tube Received (Received) Urine Color Yellow (YELLOW) Urine Appearance Clear (CLEAR,HAZY) Urine pH 5.5 (5.0-8.0) Urine Specific [place] 1.021 (1.003-1.035) Urine Protein Negativemg/dL (NEG,TRACE) Urine Glucose (UA) Negativemg/dL (NEGATIVE) Urine Ketones Negativemg/dL (NEGATIVE) Urine Occult Blood Negative (NEGATIVE) Urine Nitrite Negative (NEGATIVE) Urine Bilirubin Negative (NEGATIVE) Urine Urobilinogen Normalmg/dL (NORMAL) Urine Leukocyte Esterase Negative (NEGATIVE) Urine RBC 0-2/hpf (0-2) Urine WBC 0-5/hpf (0-5) Urine Epithelial Cells Few/hpf (NONE-MOD) Urine Crystals None seen (NONE SEEN) Urine Bacteria None/hpf (NONE-FEW) Urine Hyaline Casts Occasional/lpf (NONE) Urine Granular Casts None seen (NONE SEEN) Urine Waxy Casts None seen (NONE SEEN) Urine Red Blood Cell Casts None seen (NONE SEEN) Urine White Blood Cell Casts None seen (NONE SEEN) Urine Mucus None seen (None Seen) Urine Trichomonas None seen (NONE SEEN) Urine Yeast None (NONE SEEN) Urinalysis Comment None Urine Culture Reflexed Not indicated Neutrophils (%) (Auto) 57.7% (40-74) Lymphocytes (%) (Auto) 26.1% (14-46) Monocytes (%) (Auto) 12.0% (4-12) Eosinophils (%) (Auto) 3.6% (0-5) Basophils (%) (Auto) 0.5% (0-3) White Blood Count 8.4th/mm3 (3.8-10.1) Red Blood Count 4.78mil/mm3 (4.40-5.80) Hemoglobin 13.7g/dL (13.8-17.2) Hematocrit 40.1% (41.0-50.0) Mean Corpuscular Volume 83.9fL (81-100) Mean Corpuscular Hemoglobin 28.7pg (27.0-35.0) Mean Corpuscular Hemoglobin Concent 34.2% (32.0-37.0) Red Cell Distribution Width 14.3% (12.3-15.4) Platelet Count 217bil/L (150-400) Prothrombin Time 23.6sec (8.1-12.5) Prothromb Time International Ratio 2.17ratio Sodium Level 136mEq/L (134-144) Potassium Level 5.2mEq/L (3.5-5.2) Chloride Level 103mEq/L (97-108) Carbon Dioxide Level 21mmol/L (18-29) Blood Urea Nitrogen 34mg/dL (8-27) Creatinine 1.06mg/dL (0.76-1.27) Estimat Glomerular Filtration Rate 71mL/min (>59) Glucose Level 97mg/dL (60-99) Calcium Level 9.2mg/dL (8.5-10.1) Total Bilirubin 0.4mg/dL (0.0-1.2) Aspartate Amino Transf (AST/SGOT) 25U/L (0-50) Alanine Aminotransferase (ALT/SGPT) 30U/L (0-44) Alkaline Phosphatase 52U/L (25-160) Total Protein 6.5g/dL (6.4-8.4) Albumin 3.8g/dL (3.4-5.0) Discharge Medications Discharge Medications Aspirin (Aspirin) 81 Mg Tablet 81 MG PO DAILY (Reported) Carvedilol (Carvedilol) 12.5 Mg Tablet 12.5 MG PO BID (Reported) Cholecalciferol (Vitamin D3) (Vitamin D) 5,000 Unit Capsule 5,000 UNIT PO WEEKLY (Reported) Donepezil (Donepezil) 10 Mg Tablet 10 MG PO HS (Reported) Donepezil (Donepezil) 23 Mg Tablet 23 MG PO HS (Reported) Lisinopril (Lisinopril) 20 Mg Tablet 20 MG PO DAILY (Reported) Mirtazapine (Mirtazapine) 7.5 Mg Tablet 7.5 MG PO HS (Reported) Simvastatin (Simvastatin) 20 Mg Tablet 20 MG PO HS (Reported) Warfarin Sodium (Warfarin Sodium) 5 Mg Tablet 5 MG PO DAILY (Reported) As needed Warfarin Sodium (Warfarin Sodium) 2.5 Mg Tablet 2.5 MG PO DIRECTED PRN PRN For Tachycardia (Reported) Additional med instructions Please follow up with her Coumadin clinic or her primary care physician if they manage her Coumadin for close monitoring. Please do not take the spironolactone as this may have been the cause of her high potassium levels. Please discuss further usage of this medication with her primary care physician. Followup Plan Discharge Diet: Other (patient has no restrictions on his diet as long as he is using enters. Patient does not have his dentures and the patient use a soft mechanical diet) Discharge Activity: Other (activity as tolerated. Patient should continue to use a walker as the patient does have an unsteady gait) Follow-up Provider: Emanuel Fregoso DO Follow-up with PCP in: 1 week copies to: Emanuel Fregoso Precious L DO May 08, 2016 11:35
--- NOTE | 2016-05-08 14:59 | NUR ---
Discharge Pt DC to [facility] living [facility] at 1440 with family via private vehicle. Prior to DC, Ana from verified receipt of medication changes signed by Naldo Tate DO and evaluated the pt onsite to confirm he was a stable candidate to return home. Family very eager to go and upset about waiting for Ana to be here but were understanding of process. Pt using FWW with steady gait and has returned to his baseline LOC. All belongings with pt.
== END 2016-05-08 14:40 | disposition home or self-care (01) | DRG 422 ==
LOC: SED 05:30 → OSC 08:15 → OBSVTOIN 08:15 → OSC 15:00
PROVIDERS: ADMIT Neuromusculoskeletal Medicine & OMM; ATTEND Neuromusculoskeletal Medicine & OMM
DX: E86.0 Dehydration (principal); N17.9 Acute kidney failure, unspecified; R55 Syncope and collapse; Z79.4 Long term (current) use of insulin; Z95.0 Presence of cardiac pacemaker; Z95.1 Presence of aortocoronary bypass graft; Z79.82 Long term (current) use of aspirin; I25.2 Old myocardial infarction; E87.5 Hyperkalemia; I10 Essential (primary) hypertension; M62.81 Muscle weakness (generalized); K58.0 Irritable bowel syndrome with diarrhea; W18.11XA Fall from or off toilet without subsequent striking against object, initial encounter; Y93.89 Activity, other specified; Y92.012 Bathroom of single-family (private) house as the place of occurrence of the external cause